=== PATIENT | female | born 1985 | race Hispanic/Latino ===

== ENCOUNTER 2020-05-15 05:25 | Emergency (ER) | payer SELFPAY ==
[~2020-05-15] VITALS: Ht 154.9 cm; Wt 75.0 kg
[2020-05-15 06:38] LABS: HEMATOCRIT 41.8 % (37.0-47.0); HEMOGLOBIN 14.1 g/dl (12.0-16.0); IMMATURE GRANULOCYTES 0.3 % (0.0-5.0); MEAN CELL VOLUME 89.7 fL CALC (80.0-100.0); MEAN CORPUSCULAR HGB 30.3 pG CALC (26.0-32.0); MEAN CORPUSCULAR HGB CONC 33.7 g/dL CAL (32.0-36.0); NEUT# 3.41 thou/uL (2.00-7.15); RED BLOOD COUNT 4.66 mill/uL (4.20-5.60); RED CELL DISTRI WIDTH 11.9 % (11.5-15.5)
[2020-05-15 06:39] LABS: URINE BILIRUBIN - DIPSTICK NEGATIVE (NEGATIVE); URINE BLOOD DIPSTICK NEGATIVE (NEGATIVE); URINE COLOR YELLOW; URINE GLUCOSE - DIPSTICK NEGATIVE (NEGATIVE); URINE KETONE NEGATIVE (NEGATIVE); URINE LEUK ESTERASE NEGATIVE (NEGATIVE); URINE NITRITE - DIPSTICK NEGATIVE (Negative); URINE PH 7.5 (4.5-8.0); URINE PROTEIN - DIPSTICK NEGATIVE (NEG-TRACE); URINE UROBILINOGEN - DIPSTICK 0.2 E.U./dL (0.2)
[2020-05-15 07:00] LABS: ALKALINE PHOSPHATASE 64 u/l (38-126); ANION GAP 10 (6-22 (CALC)); BILIRUBIN, TOTAL 0.4 mg/dL (0.0-1.4); BUN 9 mg/dL (7-17); BUN/CREATININE RATIO 16 (12-20 (CALC)); CARBON DIOXIDE 27 mmol/l (22-30); CHLORIDE 103 mmol/l (95-108); CREATININE 0.6 mg/dL (0.5-1.0); GFR > 60 ML/MIN (>=60 (CALC)); GFR FOR AFR.AMER. > 60 ML/MIN (>=60 (CALC)); POTASSIUM 4.1 mmol/l (3.5-5.1); SGOT/AST 24 u/l (14-36); SODIUM 136 mmol/l (137-146); TOTAL PROTEIN 6.8 g/dL (6.3-8.2)
[2020-05-15 09:13] VITALS: BP 111/69
== END 2020-05-15 09:20 | disposition home or self-care (01) | DRG 103 ==
LOC: ED 05:25
PROVIDERS: Emergency Medicine
DX: R51.9 Headache, unspecified (principal); R42 Dizziness and giddiness; Z20.822 Contact with and (suspected) exposure to COVID-19

== ENCOUNTER 2020-07-04 07:37 | Emergency (ER) | payer SELFPAY ==
[~2020-07-04] VITALS: Ht 154.9 cm; Wt 85.5 kg
[2020-07-04 08:25] LABS: HEMATOCRIT 39.9 % (37.0-47.0); HEMOGLOBIN 13.8 g/dl (12.0-16.0); IMMATURE GRANULOCYTES 0.2 % (0.0-5.0); MEAN CELL VOLUME 89.7 fL CALC (80.0-100.0); MEAN CORPUSCULAR HGB CONC 34.6 g/dL CAL (32.0-36.0); NEUT# 3.71 thou/uL (2.00-7.15); RED BLOOD COUNT 4.45 mill/uL (4.20-5.60); RED CELL DISTRI WIDTH 12.2 % (11.5-15.5)
[2020-07-04 08:29] LABS: URINE BILIRUBIN - DIPSTICK NEGATIVE (NEGATIVE); URINE BLOOD DIPSTICK LARGE (NEGATIVE); URINE COLOR YELLOW; URINE GLUCOSE - DIPSTICK NEGATIVE (NEGATIVE); URINE KETONE NEGATIVE (NEGATIVE); URINE LEUK ESTERASE NEGATIVE (NEGATIVE); URINE PROTEIN - DIPSTICK NEGATIVE (NEG-TRACE); URINE SPECIFIC GRAVITY 1.025
[2020-07-04 08:38] LABS: URINE NITRITE - DIPSTICK NEGATIVE (Negative)
[2020-07-04 08:39] LABS: URINE BACTERIA RARE hpf; URINE EPITHELIAL CELLS FEW EPI/hpf (0-FEW); URINE WBC 0-2 WBC/hpf (0-5)
[2020-07-04 08:41] LABS: ALBUMIN 4.2 g/dL (3.2-5.0); ALKALINE PHOSPHATASE 68 u/l (38-126); AMYLASE 77 u/l (30-110); ANION GAP 11 (6-22 (CALC)); BUN 6 mg/dL (7-17); BUN/CREATININE RATIO 12 (12-20 (CALC)); CARBON DIOXIDE 24 mmol/l (22-30); CHLORIDE 105 mmol/l (95-108); CREATININE 0.5 mg/dL (0.5-1.0); GFR > 60 ML/MIN (>=60 (CALC)); GFR FOR AFR.AMER. > 60 ML/MIN (>=60 (CALC)); LIPASE 77 u/l (23-300); POTASSIUM 3.4 mmol/l (3.5-5.1); SGOT/AST 26 u/l (14-36); SODIUM 137 mmol/l (137-146); TOTAL PROTEIN 7.3 g/dL (6.3-8.2)
[2020-07-04 08:44] LABS: BILIRUBIN, TOTAL 0.7 mg/dL (0.0-1.4)
[2020-07-04] MEDS ORDERED: ZOFRAN4 MG/TAB PO (10:46)
[2020-07-04] MEDS ORDERED: IMODIUM2 MG PO (10:46)
[2020-07-04 10:47] VITALS: BP 157/85
== END 2020-07-04 10:57 | disposition home or self-care (01) | DRG 392 ==
LOC: ED 07:37
DX: K52.9 Noninfective gastroenteritis and colitis, unspecified (principal); Z20.822 Contact with and (suspected) exposure to COVID-19

== ENCOUNTER 2021-03-21 09:03 | Emergency (ER) | payer SELFPAY ==
[~2021-03-21] VITALS: Ht 154.9 cm; Wt 87.2 kg
[~2021-03-21 09:03] MED LIST: IMODIUM2 MG PO; ZOFRAN4 MG/TAB PO
[2021-03-21 09:44] LABS: URINE BILIRUBIN - DIPSTICK NEGATIVE (NEGATIVE); URINE BLOOD DIPSTICK TRACE-INTACT (NEGATIVE); URINE COLOR YELLOW; URINE GLUCOSE - DIPSTICK NEGATIVE (NEGATIVE); URINE KETONE NEGATIVE (NEGATIVE); URINE LEUK ESTERASE NEGATIVE (NEGATIVE); URINE PROTEIN - DIPSTICK NEGATIVE (NEG-TRACE); URINE UROBILINOGEN - DIPSTICK 0.2 E.U./dL (0.2)
[2021-03-21 09:45] LABS: URINE NITRITE - DIPSTICK NEGATIVE (Negative)
[2021-03-21 10:12] LABS: HEMATOCRIT 40.1 % (37.0-47.0); HEMOGLOBIN 13.5 g/dl (12.0-16.0); IMMATURE GRANULOCYTES 0.1 % (0.0-5.0); MEAN CELL VOLUME 91.6 fL CALC (80.0-100.0); MEAN CORPUSCULAR HGB 30.8 pG CALC (26.0-32.0); MEAN CORPUSCULAR HGB CONC 33.7 g/dL CAL (32.0-36.0); NEUT# 5.45 thou/uL (2.00-7.15); RED BLOOD COUNT 4.38 mill/uL (4.20-5.60); RED CELL DISTRI WIDTH 11.9 % (11.5-15.5)
[2021-03-21 10:24] LABS: ALKALINE PHOSPHATASE 68 u/l (38-126); AMYLASE 90 u/l (30-110); ANION GAP 10 (6-22 (CALC)); BILIRUBIN, TOTAL 0.7 mg/dL (0.0-1.4); BUN 11 mg/dL (7-17); BUN/CREATININE RATIO 18 (12-20 (CALC)); CARBON DIOXIDE 28 mmol/l (22-30); CHLORIDE 105 mmol/l (95-108); CREATININE 0.6 mg/dL (0.5-1.0); GFR > 60 ML/MIN (>=60 (CALC)); GFR FOR AFR.AMER. > 60 ML/MIN (>=60 (CALC)); POTASSIUM 3.8 mmol/l (3.5-5.1); SGOT/AST 23 u/l (14-36); SODIUM 139 mmol/l (137-146); TOTAL PROTEIN 7.4 g/dL (6.3-8.2)
[2021-03-21] MEDS ORDERED: NAPROXEN EC500 MG PO (11:37)
[2021-03-21] MEDS ORDERED: PROTONIX40 MG PO (11:37)
[2021-03-21 11:55] VITALS: BP 127/85
== END 2021-03-21 12:08 | disposition home or self-care (01) | DRG 761 ==
LOC: ED 09:03
DX: N94.6 Dysmenorrhea, unspecified (principal); K29.70 Gastritis, unspecified, without bleeding; Z20.822 Contact with and (suspected) exposure to COVID-19

== ENCOUNTER 2021-06-29 14:26 | Emergency (ER) | payer SELFPAY ==
[~2021-06-29] VITALS: Ht 154.9 cm; Wt 82.0 kg
[~2021-06-29 14:26] MED LIST changes: +NAPROXEN EC500 MG PO; +PROTONIX40 MG PO
[2021-06-29 14:45] VITALS: BP 130/80
[2021-06-29] MEDS ORDERED: FLOXIN OTIC0.3 % AS (15:59)
[2021-06-29] MEDS ORDERED: HYDROCO/APAP1 TA9 PO (15:59)
[2021-06-29] MEDS ORDERED: CLINDAMYCIN300 M1 PO (15:59)
== END 2021-06-29 16:25 | disposition home or self-care (01) | DRG 153 ==
LOC: ED 14:26
PROC: 3E1B38Z Irrigation of Ear using Irrigating Substance, Percutaneous Approach (ICD-10-PCS; principal; 2021-06-29)
DX: H66.91 Otitis media, unspecified, right ear (principal); H61.21 Impacted cerumen, right ear; J02.9 Acute pharyngitis, unspecified; J06.9 Acute upper respiratory infection, unspecified; Z20.822 Contact with and (suspected) exposure to COVID-19

== ENCOUNTER 2021-07-26 15:34 | Emergency (ER) | payer SELFPAY ==
[~2021-07-26] VITALS: Ht 154.9 cm; Wt 68.2 kg
[2021-07-26] VITALS (8 sets, daily range): BP systolic 107–118; BP diastolic 64–76
[~2021-07-26 15:34] MED LIST changes: +CLINDAMYCIN300 M1 PO; +FLOXIN OTIC0.3 % AS; +HYDROCO/APAP1 TA9 PO
[2021-07-26 16:43] LABS: URINE BILIRUBIN - DIPSTICK NEGATIVE (NEGATIVE); URINE BLOOD DIPSTICK SMALL (NEGATIVE); URINE COLOR YELLOW; URINE GLUCOSE - DIPSTICK NEGATIVE (NEGATIVE); URINE KETONE NEGATIVE (NEGATIVE); URINE LEUK ESTERASE NEGATIVE (NEGATIVE); URINE PROTEIN - DIPSTICK NEGATIVE (NEG-TRACE); URINE SPECIFIC GRAVITY >=1.030; URINE UROBILINOGEN - DIPSTICK 0.2 E.U./dL (0.2)
[2021-07-26 16:45] LABS: URINE NITRITE - DIPSTICK NEGATIVE (Negative)
[2021-07-26 16:52] LABS: URINE RBC 0-2 RBC/hpf (0-5); URINE SQUAMOUS EPITHELIAL CELL FEW EPI/hpf (0-FEW); URINE WBC 0-2 WBC/hpf (0-5)
[2021-07-26] MEDS ORDERED: KEFLEX500 MG PO (17:14)
[2021-07-26] MEDS ORDERED: PYRIDIUM200 MG PO (17:17)
== END 2021-07-26 17:50 | disposition home or self-care (01) | DRG 690 ==
LOC: ED 15:34
DX: N39.0 Urinary tract infection, site not specified (principal); M79.89 Other specified soft tissue disorders; Z20.822 Contact with and (suspected) exposure to COVID-19

== ENCOUNTER 2022-07-24 19:31 | Emergency (ER) | payer SELFPAY ==
[~2022-07-24] VITALS: Ht 160 cm; Wt 122.4 kg
[~2022-07-24 19:31] MED LIST changes: +BIOTIN1000 MCG PO; +KEFLEX500 MG PO; +PYRIDIUM200 MG PO
[2022-07-24] MEDS ORDERED: ULTRAM50 MG PO (20:32)
[2022-07-24] MEDS ORDERED: ANUCORT-HC25 MG RE (20:32)
[2022-07-24 20:34] VITALS: BP 144/111
== END 2022-07-24 20:49 | disposition home or self-care (01) | DRG 395 ==
LOC: ED 19:31
DX: K64.4 Residual hemorrhoidal skin tags (principal)

== ENCOUNTER 2022-09-12 21:56 | Emergency (ER) | payer SELFPAY ==
[~2022-09-12] VITALS: Ht 160 cm; Wt 90.0 kg
[~2022-09-12 21:56] MED LIST changes: +ANUCORT-HC25 MG RE; +MONISTAT1 VA; +NO HOME MEDS; +TAM75CAP OR; +ULTRAM50 MG PO
[2022-09-13 00:53] LABS: BASO% 0.3 % (0-3); EOS% 2.6 % (0-8); HEMOGLOBIN 12.8 g/dl (12.0-16.0); IMMATURE GRANULOCYTES 0.3 % (0.0-5.0); LYMPH% 14.8 % (15-41); MEAN CELL VOLUME 90.3 fL CALC (80.0-100.0); MEAN CORPUSCULAR HGB 30.4 pG CALC (26.0-32.0); MEAN CORPUSCULAR HGB CONC 33.7 g/dL CAL (32.0-36.0); MONO% 8.9 % (2-13); NEUT% 73.1 % (42-76); RED BLOOD COUNT 4.21 mill/uL (4.20-5.60); RED CELL DISTRI WIDTH 11.7 % (11.5-15.5)
[2022-09-13 00:58] LABS: ALBUMIN 3.9 g/dL (3.2-5.0); ALKALINE PHOSPHATASE 68 u/l (38-126); AMYLASE 79 u/l (30-110); ANION GAP 8 (6-22 (CALC)); BILIRUBIN, TOTAL 0.2 mg/dL (0.02-1.3); BUN 12 mg/dL (7-17); BUN/CREATININE RATIO 16 (12-20 (CALC)); CARBON DIOXIDE 27 mmol/l (22-30); CHLORIDE 106 mmol/l (95-108); CREATININE 0.8 mg/dL (0.5-1.0); GFR FOR AFR.AMER. > 60 ML/MIN (>=60 (CALC)); GFR OTHER RACES > 60 ML/MIN (>=60 (CALC)); LIPASE 90 u/l (23-300); POTASSIUM 3.7 mmol/l (3.5-5.1); SGOT/AST 39 u/l (14-36); SODIUM 138 mmol/l (137-146)
[2022-09-13] MEDS ORDERED: ONDANSETRON4 MG PO (03:49)
[2022-09-13] MEDS ORDERED: LOMOTIL2.5 MG PO (03:49)
[2022-09-13] MEDS ORDERED: CIPROFLOXACN500 MG PO (03:49)
[2022-09-13 03:59] VITALS: BP 137/87
== END 2022-09-13 04:15 | disposition home or self-care (01) | DRG 392 ==
LOC: ED 21:56
PROVIDERS: Emergency Medicine
DX: K52.9 Noninfective gastroenteritis and colitis, unspecified (principal)
CPT/HCPCS: Q9967

== ENCOUNTER 2023-11-05 16:22 | Emergency (ER) | payer SELFPAY ==
[~2023-11-05] VITALS: Ht 160 cm; Wt 127.0 kg
[~2023-11-05 16:22] MED LIST changes: +CIPROFLOXACN500 MG PO; +LOMOTIL2.5 MG PO; +METRONIDAZOLE500 MG PO; +ONDANSETRON4 MG PO; +VIBRAMYCIN100 M2 PO
[2023-11-05 16:44] VITALS: BP 112/64
[2023-11-05 16:45] VITALS: BP 108/64
[2023-11-05 17:10] VITALS: BP 108/64
== END 2023-11-05 17:12 | disposition home or self-care (01) | DRG 761 ==
LOC: ED 16:22
DX: T19.2XXA Foreign body in vulva and vagina, initial encounter (principal); W44.8XXA Other foreign body entering into or through a natural orifice, initial encounter

== ENCOUNTER 2023-11-30 20:39 | Emergency (ER) | payer SELFPAY ==
[~2023-11-30] VITALS: Ht 160 cm; Wt 124.0 kg
[2023-11-30 20:45] VITALS: BP 131/79
[2023-11-30] MEDS ORDERED: MECLIZINE HCL 25 MG/TAB PO ONE (20:55)
[2023-11-30] MEDS ORDERED: SUMAtriptan SUCCINATE 6 MG/0.5 ML SDV SC ONE (20:55)
[2023-11-30] MEDS ORDERED: PROMETHAZINE HCL 25 MG/ML AMP IV ONE (20:55)
[2023-11-30] MEDS ORDERED: KETOROLAC TROMETHAMINE 30 MG/ML SDV IV ONE (20:55)
[2023-11-30] MEDS ORDERED: SODIUM CHLORIDE 0.9% 1,000 ML IV ONE (20:55)
[2023-11-30] MEDS ORDERED: ACETAMINOPHEN 500 MG TAB PO ONE (20:55)
[2023-11-30 21:01] VITALS: BP 129/76
[2023-11-30] MEDS ORDERED: ATORVASTATIN CA10 MG PO (21:02)
[2023-11-30 21:14] LABS: BASO% 0.2 % (0-3); EOS% 2.8 % (0-8); HEMATOCRIT 36.7 % (37.0-47.0); HEMOGLOBIN 12.8 g/dl (12.0-16.0); IMMATURE GRANULOCYTES 0.2 % (0.0-5.0); LYMPH% 28.3 % (15-41); MEAN CELL VOLUME 89.3 fL CALC (80.0-100.0); MEAN CORPUSCULAR HGB 31.1 pG CALC (26.0-32.0); MEAN CORPUSCULAR HGB CONC 34.9 g/dL CAL (32.0-36.0); MONO% 7.4 % (2-13); NEUT# 5.54 thou/uL (2.00-7.15); NEUT% 61.1 % (42-76); RED BLOOD COUNT 4.11 mill/uL (4.20-5.60); RED CELL DISTRI WIDTH 12.2 % (11.5-15.5)
[2023-11-30 21:27] LABS: ALBUMIN 4.1 g/dL (3.2-5.0); BILIRUBIN, TOTAL 0.3 mg/dL (0.02-1.3); CREATININE 0.8 mg/dL (0.5-1.0); POTASSIUM 3.7 mmol/l (3.5-5.1); TOTAL PROTEIN 7.2 g/dL (6.3-8.2)
[2023-11-30 21:31] VITALS: BP 135/86
[2023-11-30 22:01] VITALS: BP 145/81
[2023-11-30 22:04] LABS: URINE BILIRUBIN - DIPSTICK Negative (NEGATIVE); URINE BLOOD DIPSTICK Negative (NEGATIVE); URINE COLOR Yellow; URINE GLUCOSE - DIPSTICK Negative (NEGATIVE); URINE KETONE Negative (NEGATIVE); URINE LEUK ESTERASE Negative (NEGATIVE); URINE NITRITE - DIPSTICK Negative (Negative); URINE PROTEIN - DIPSTICK Negative (NEG-TRACE); URINE UROBILINOGEN - DIPSTICK 0.2 E.U./dL (0.2)
[2023-11-30 22:16] VITALS: BP 129/81
[2023-11-30] MEDS ORDERED: PROMETHAZINE HY25 M1 PO (23:14)
[2023-11-30] MEDS ORDERED: IMITREX100 M1 PO (23:14)
[2023-11-30 23:44] VITALS: BP 129/81
== END 2023-11-30 23:44 | disposition home or self-care (01) | DRG 103 ==
LOC: ED 20:39
PROVIDERS: Family Medicine
DX: G43.909 Migraine, unspecified, not intractable, without status migrainosus (principal)